=== PATIENT | male | born 1990 | race Two or more races ===

== ENCOUNTER 2024-10-03 16:08 | Emergency (ER) | payer MEDICAID, SELFPAY ==
[2024-10-03 16:51] VITALS: BP 119/72; PULSE 86; RESP 20; TEMP 36.8; O2SAT 95
[2024-10-03] MEDS: LIDOCAINE HCL 1% 20 ML VIAL INFL (17:33)
--- NOTE | 2024-10-03 17:39 | EDNOTE_ITS ---
<Statement entered by Iva Strong MD - 10/04/24 06:24> As co-signing physician, I was present and available for consult prn. I concur with the plan and care as documented by the midlevel provider. ED Wound/Laceration-RME/HPI General Chief Complaint: Wound/Laceration Stated Complaint: Laceration to left thumb Time Seen by Provider: 10/03/24 16:17 Arrival date/time: 10/03/24 16:08 34-year-old male presents emergency department for complaint of laceration left thumb patient reports he accidentally cut himself while he was up on a ladder with a knife Limitations: no limitations Related Data Previous Rx's ?Medication ?Instructions ?Recorded ondansetron 4 mg disintegrating 4 mg PO Q12H PRN nause a and 07/26/22 tablet vomiting #6 tabs clindamycin HCl 300 mg capsule 300 mg PO TID #30 caps 10/30/22 ibuprofen 800 mg tablet 800 mg PO TID PRN pain #30 t abs 10/30/22 bacitracin 500 unit/gram topical 1 applic topical TID 7 days #28.4 10/03/24 ointment grams ibuprofen 600 mg tablet 600 mg PO Q6H #30 tabs 10/03 Allergies Allergy/AdvReac Type Severity Reaction Status Date / Time amoxicillin Allergy Verified 10/03/24 16:11 Review of Systems Review of Systems Systems Reviewed: All systems reviewed, normal except as documented Constitutional Constitutional: Reports system reviewed and no additional complaints, except as documented, Denies fever(s) and Denies headache(s) Eyes Eyes: Reports system reviewed and no additional complaints, except as documented and Denies blurry vision ENT Ears, Nose, Mouth, and Throat: Reports system reviewed and no additional complaints, except as documented, Denies headache(s), Denies nasal congestion and Denies nasal discharge Cardiovascular Cardiovascular: Reports system reviewed and no additional complaints, except as documented, Denies chest pain and Denies dyspnea Respiratory Respiratory: Reports system reviewed and no additional complaints, except as documented, Denies chest congestion, Denies cough and Denies dyspnea Gastrointestinal Gastrointestinal: Reports system reviewed and no additional complaints, except as documented and Denies abdominal pain Musculoskeletal Musculoskeletal: Reports system reviewed and no additional complaints, except as documented and Reports arthralgias Integumentary/Breasts Skin/Breast: Reports system reviewed and no additional complaints, except as documented, Denies rash and Reports wounds (Laceration left thumb) Neurologic Neurologic: Reports system reviewed and no additional complaints, except as documented, Reports as per HPI and Denies headache(s) Past Medical History Past Medical History CARDIAC: Negative Cardiac Disorders or Congestive Heart Failure RESPIRATORY: Negative Chronic Obstructive Pulmonary Disease (COPD) or Asthma GENITOURINARY: Negative Renal Disease ENDOCRINE: Negative Diabetes Mellitus Type 1 or Diabetes Mellitus Type 2 HEMATOLOGIC: Negative Sickle Cell Disease Social History SMOKING STATUS: Light (< 1 pack/day) ED Exam General Limitations: Present no limitations General appearance: Present alert and in no apparent distress Head Head exam: Present atraumatic, normocephalic and normal inspection Eye Eye exam: Present normal appearance, PERRL and EOMI ENT ENT exam: Present normal exam, normal oropharynx and mucous membranes moist Neck Neck exam: Present normal inspection, full ROM and trachea midline Chest Chest inspection: Present normal inspection and symmetric chest wall rise Respiratory Respiratory exam: Present normal lung sounds bilaterally Cardiovascular Cardiovascular exam: Present regular rate, normal rhythm and normal heart sounds Abdominal Exam Abdominal exam: Present soft and normal bowel sounds Extremities Exam Extremities exam: Present normal inspection and full ROM Back Exam Back exam: Present normal inspection and full ROM Neurological Exam Neurological exam: Present alert, oriented X3, CN II-XII intact, normal gait and reflexes normal; Absent motor sensory deficit Psychiatric Psychiatric exam: Present normal affect and normal mood Skin Skin exam: Present warm, dry and other (Laceration left thumb) Course Quality Measures none Orders Category Date Time Status Set Up Suture Tray STAT Care 10/03/24 17:22 Active Wound Care NOW Care 10/03/24 17:22 Active Lidocaine 1% 20 ml [Xylocaine 1% 20 ML] Med 10/03/24 17:22 Discontinued 20 ml INFL X1 ONE Vital Signs Vital signs: Vital Signs Temperature 98.3 F 10/03/24 16:51 Pulse Rate 86 10/03/24 16:51 Respiratory Rate 20 10/03/24 16:51 Blood Pressure 119/72 10/03/24 16:51 Pulse Oximetry (%) 95 10/03/24 16:51 Oxygen Delivery Method Room Air 10/03/24 16:51 O2 saturation 95% on room air within normal limits Procedures -ED Laceration Laceration 1: Site: hand Side (If applicable): left Size (cm): 4 Description: linear Depth: simple, single layer Local Anesthetic: lidocaine 1% Amount of anesthesia used (mL): 10 Pre-repair: wound explored and irrigated extensively Skin layer closed with: nylon Size (cm): 4-0 and 5-0 Number of sutures: 9 Technique: simple, interrupted Wound / Laceration MDM Narrative MDM Narrative:: 34-year-old male presents emergency department for complaint of laceration left thumb patient reports he accidentally cut himself while he was up on a ladder with a knife On exam patient has laceration left thumb no evidence of tendon ligamentous injury Wound irrigated copiously laceration repaired with 9 sutures wounds well- approximated Patient reports tetanus up-to-date Patient discharged home in no distress to follow-up with primary care doctor in the next 24 to 48 hours and for any worsening symptoms to return to the ER immediately Patient data External records reviewed:: [facility] previous records Clinical information provided by:: patient Social determinants that could affect healthcare access:: none Patient has the following chronic illnesses:: None How is presenting disease/condition affected by chronic disease/condition?: no chronic disease Evaluation data The following diagnostics were reviewed and interpreted by me:: other (specify) (N/A) Lab and/or radiology exams considered but not ordered:: Consider not indicated Interpretation Summary: N/A Medications / Prescriptions Medications or Prescriptions considered but not ordered:: Given Medication administrations:: Medication Administration History Discontinued Medications Lidocaine HCl (Lidocaine Hcl 1% 20 Ml Vial) 20 ml INFL X1 ONE Stop: 10/03/24 17:23 Last Admin: 10/03/24 17:33 Dose: 5 ml Documented By: BECKY Comments: Med administered by provider at bedside Given Consultations Consultation(s) initiated? (list below): No Diagnosis Wound Differential Diagnosis: laceration, abrasion and avulsion of skin Most likely diagnosis given after review of the tests above:: Laceration Admission Indicated Admission indicated?: not indicated Admission Request Was there a request for admission?: No Disposition Plan Disposition Plan: Discharge Discharge Attestation Discharge Attestation: The patient and all family members were given an opportunity to ask questions and understood the discharge instructions. Discharge instructions specifically effects, indications for sooner follow up or return to the emergency department, and the expected course of current diagnosis. Patient condition: Stable Discharge Plan Plan Patient Disposition: HOME (Self Care) Discharge Disposition comment: Stable Prescriptions/Referrals Prescriptions/Med Rec: Chavez valeraacin 500 unit/gram ointment 1 applic topical TID 7 Days Qty: 28.4 0RF ibuprofen 600 mg tablet 600 mg PO Q6H Qty: 30 0RF No Action ondansetron 4 mg tablet,disintegrating 4 mg PO Q12H PRN (Reason: nausea and vomiting) Qty: 6 0RF ibuprofen 800 mg tablet 800 mg PO TID PRN (Reason: pain) Qty: 30 0RF clindamycin HCl 300 mg capsule 300 mg PO TID Qty: 30 0RF Problem List Clinical Impression: Laceration of left thumb Patient/Caregiver Discharge Instructions Education Materials: ED Laceration: All Closures Additional Instructions: Please follow up with your primary care doctor in the next 24-48hrs for any worsening symptoms return here immediately Print Language: Japanese Stand Alone Forms: Suad Award Info., Work/School Release, Patient Portal Info Letter PA/[employer] Supervising Physician PA/[employer] Supervising Physician: Dr. strong
== END 2024-10-03 17:53 | disposition home or self-care (01) ==
LOC: SERX 17:52
PROVIDERS: Emergency Provider Emergency Medicine
DX: S61.012A Laceration without foreign body of left thumb without damage to nail, initial encounter (principal); W26.0XXA Contact with knife, initial encounter
CPT/HCPCS: 12002; 99283; J3490

== ENCOUNTER 2024-12-12 22:31 | Emergency (ER) | payer MEDICAID, SELFPAY ==
[2024-12-12 22:32] VITALS: BMI 27.1
== END 2024-12-12 23:20 | disposition left against medical advice (07) ==
LOC: SERX 23:24
PROVIDERS: Emergency Provider Emergency Medicine
DX: Z53.21 Procedure and treatment not carried out due to patient leaving prior to being seen by health care provider (principal)
CPT/HCPCS: 99282